=== PATIENT | male | born 2005 | race Caucasian/White ===

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

== ENCOUNTER 2024-11-11 15:18 | Emergency (ER) | payer OTHER, MEDICAID | END 2024-11-11 17:00 | disposition left against medical advice (07) | LOC: MW.ED 15:18 | DX: Z53.21 Procedure and treatment not carried out due to patient leaving prior to being seen by health care provider (principal) | CPT/HCPCS: 73130-26-LT; 73130-LT ==